=== PATIENT | female | born 1985 | race Caucasian/White ===

== ENCOUNTER 2022-11-25 11:56 | Emergency (ER) | payer MEDICAID ==
[~2022-11-25] VITALS: Ht 154.9 cm; Wt 63.0 kg
[2022-11-25 12:11] VITALS: BP 132/85; PULSE 83; RESP 18; TEMP 98.1; O2SAT 100
[2022-11-25] MEDS ORDERED: HYD1C TP (13:03)
[2022-11-25] MEDS ORDERED: ATA25 PO (13:03)
[2022-11-25 13:11] VITALS: BP 116/65; PULSE 74; RESP 17; O2SAT 98
== END 2022-11-25 13:10 | disposition home or self-care (01) ==
LOC: MED 11:56
DX: L20.9 Atopic dermatitis, unspecified (principal); Z79.899 Other long term (current) drug therapy; Z88.0 Allergy status to penicillin
CPT/HCPCS: 99282

== ENCOUNTER 2023-04-11 10:07 | Emergency (ER) | payer MEDICAID, OTHER ==
[~2023-04-11] VITALS: Ht 165.1 cm; Wt 72.6 kg
[~2023-04-11 10:07] MED LIST: ATA25 PO; HYD1C TP
[2023-04-11 10:24] VITALS: BP 142/89; PULSE 89; RESP 18; TEMP 97; O2SAT 98
[2023-04-11] MEDS ORDERED: POLY10DR5 OP (11:24)
[2023-04-11] MEDS ORDERED: CEPH-588 PO (11:24)
[2023-04-11 11:38] VITALS: BP 135/77; PULSE 89; RESP 18; TEMP 97; O2SAT 98
== END 2023-04-11 11:37 | disposition home or self-care (01) ==
LOC: MED 10:07
DX: L03.213 Periorbital cellulitis (principal); H00.014 Hordeolum externum left upper eyelid; Z79.899 Other long term (current) drug therapy
CPT/HCPCS: 99283